=== PATIENT | female | born 1965 | race Caucasian/White ===

== ENCOUNTER 2017-02-16 17:16 | Emergency (ER) | payer OTHER ==
[~2017-02-16] VITALS: Ht 175.3 cm; Wt 62.8 kg
[~2017-02-16 17:16] MED LIST: ALPR-475 PO; AMIT25TA PO; CLOP75TA52 PO; DAPT500V6 IV; HYDR-3307 PO; RIVA20TA PO; ROSU10TA PO; VENL150C PO; [UNRECOGNIZED DRUG - CODE] PO
[2017-02-16] MEDS ORDERED: SODIUM CHLORIDE 0.9% 1,000 ML IV ONE (18:10)
[2017-02-16] MEDS ORDERED: KETOROLAC 30 MG/1 ML ONE (18:14)
[2017-02-16] MEDS ORDERED: ONDANSETRON 2MG/ML, 2ML ONE (18:14)
[2017-02-16] MEDS ORDERED: LORazepam 2 MG/ML, 1ML ONE (18:15)
[2017-02-16] MEDS ORDERED: KETOROLAC 30 MG/1 ML IVPush ONE (18:30)
[2017-02-16] MEDS ORDERED: LORazepam 2 MG/ML, 1ML IVP ONE (18:30)
[2017-02-16] MEDS ORDERED: ONDANSETRON 2MG/ML, 2ML IVP ONE (18:30)
[2017-02-16] MEDS ORDERED: SODIUM CHLORIDE FLUSH 10ML SYR IVF ONE (18:30)
[2017-02-16 19:12] LABS: ASPARTATE AMINO TRANSFERASE 31 U/L (15-37); BLOOD UREA NITROGEN 11 mg/dL (7-18)
[2017-02-16 19:14] LABS: HEMATOCRIT 38.1 % (34.6-47.8); HEMOGLOBIN 12.4 g/dL (11.7-16.4); WHITE BLOOD COUNT 6.2 x10^3/uL (3.4-10)
[2017-02-16 19:18] LABS: IS PT STATUS REG ER OR PRE ER? YES
[2017-02-16] MEDS ORDERED: OMNIPAQUE 350 MG/ML, 100ML BOTTLE ONE (20:23)
[2017-02-16 20:37] VITALS: BP 108/61
== END 2017-02-16 20:41 | disposition home or self-care (01) ==
LOC: ED 20:32
DX: R06.00 Dyspnea, unspecified (principal); F43.0 Acute stress reaction; F41.9 Anxiety disorder, unspecified; Z88.0 Allergy status to penicillin; Z88.1 Allergy status to other antibiotic agents
CPT/HCPCS: 36415; 71020; 71275; 80053; 84484; 85025; 85610; 93005; 96361; 96374; 96375; 99285; J2060; J2405; J7030; Q9967

== ENCOUNTER 2017-04-09 14:03 | Emergency (ER) | payer OTHER ==
[~2017-04-09] VITALS: Ht 175.3 cm; Wt 62.0 kg
[2017-04-09] MEDS ORDERED: GABA300C10 PO (14:59)
[2017-04-09] MEDS ORDERED: DEXT10TA7 PO (15:03)
[2017-04-09 16:10] LABS: HEMATOCRIT 39.3 % (34.6-47.8); HEMOGLOBIN 12.9 g/dL (11.7-16.4); WHITE BLOOD COUNT 5.2 x10^3/uL (3.4-10)
[2017-04-09 16:24] LABS: BLOOD UREA NITROGEN 9 mg/dL (7-18)
[2017-04-09 17:28] VITALS: BP 122/68
== END 2017-04-09 18:01 | disposition home or self-care (01) ==
LOC: ED 17:50
DX: R53.83 Other fatigue (principal); Z86.73 Personal history of transient ischemic attack (TIA), and cerebral infarction without residual deficits; M19.90 Unspecified osteoarthritis, unspecified site; Z88.0 Allergy status to penicillin; Z88.8 Allergy status to other drugs, medicaments and biological substances
CPT/HCPCS: 36415; 70450; 70551; 80048; 82040; 85025; 85610; 85730; 99285

== ENCOUNTER 2018-10-03 15:56 | Emergency (ER) | payer OTHER ==
[~2018-10-03] VITALS: Ht 175.3 cm; Wt 71.8 kg
[~2018-10-03 15:56] MED LIST changes: +DEXT10TA7 PO; +GABA300C10 PO; -ROSU10TA PO; +ROSU10TA2 PO
[2018-10-03] MEDS ORDERED: SODIUM CHLORIDE FLUSH 10ML SYR IVF ONE (16:30)
[2018-10-03 16:58] LABS: HCT (SEDRATE) 36.9 % (34.6-47.8)
[2018-10-03 17:00] LABS: BASOPHILS # (AUTO) 0.01 x10^3/uL (0-0.1); BASOPHILS % (AUTO) 0 % (0-1); EOSINOPHILS # (AUTO) 0.16 x10^3/uL (0-0.4); EOSINOPHILS % (AUTO) 4 % (1-7); LYMPHOCYTES # (AUTO) 1.27 x10^3/uL (1-3.4); LYMPHOCYTES % (AUTO) 31 % (22-44); MD NO; MEAN CORPUSCULAR HGB CONC 31.4 g/dL (32.4-35.8); MEAN CORPUSCULAR VOLUME 76.5 fL (80-100); MEAN PLATELET VOLUME 9.4 fL (7.4-10.4); MONOCYTES # (AUTO) 0.37 x10^3/uL (0.2-0.8); MONOCYTES % (AUTO) 9 % (2-9); NEUTROPHILS # (AUTO) 2.21 x10^3/uL (1.8-6.8); NEUTROPHILS % (AUTO) 55 % (42-75); PLATELET COUNT 251 x10^3/uL (130-400); RED BLOOD COUNT 4.81 x10^6/uL (3.82-5.3); RED CELL DISTRIBUTION WIDTH 15.5 % (9.6-15.2)
[2018-10-03 17:06] LABS: ALANINE AMINOTRANSFERASE 35 U/L (12-78); ALBUMIN 3.5 g/dL (3.4-5.0); ANION GAP 7 mmol/L (5-15); CALCIUM 8.6 mg/dL (8.5-10.1); CHLORIDE 111 mmol/L (98-107); CREATININE 0.84 mg/dL (0.55-1.02)
[2018-10-03] MEDS ORDERED: GADOBUTROL 7.5 MMOL/7.5 ML PFS ONE (17:15)
[2018-10-03 17:16] LABS: ALKALINE PHOSPHATASE 146 U/L (45-117); BILIRUBIN,TOTAL 0.2 mg/dL (0.2-1.0); TOTAL PROTEIN 7.1 g/dL (6.4-8.2)
--- NOTE | 2018-10-03 17:25 | NUR ---
LATE NOTE ENTRY FOR 1606: Pt presents to ED with friend at bedside. Pt c/o slurred speech starting "yesterday". 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 She had a major stroke 10 years ago. She takes Eloquis, but stopped it four days ago for fillers (botox). She started taking it again. She has been having terrible pain in her neck and arms as well. Her arms are weak and she just seems weaker." Pt resting on gurney connected to NIBP, continous pulse ox, and secured entrance monitor. Both bedrails up for safety measures. Call light within reach. Pt has occasional slurred speech, can speak in full sentences. Pt has mild weakness in bilateral upper extremities that began "yesterday". Pt denies cp, sob, n/v/d, trauma, dizziness, or lightheadedness.
--- NOTE | 2018-10-03 17:31 | NUR ---
Pt transported on [facility] to [facility].
[2018-10-03 17:47] LABS: INTERNATIONAL NORMALIZED RATIO 1.04 (0.93-1.1); PROTHROMBIN TIME 10.9 Seconds (9.6-11.5)
[2018-10-03 18:19] VITALS: BP 113/64
--- NOTE | 2018-10-03 18:49 | NUR ---
Pt report from Ro bolton. This rn to assume care of pt.
--- NOTE | 2018-10-03 18:59 | NUR ---
Provided bedside report to GRETCHEN Fierro. All questions answered. GRETCHEN Fierro to assume care of pt. NADN.
== END 2018-10-03 19:11 | disposition home or self-care (01) ==
LOC: ED 17:14
DX: R41.82 Altered mental status, unspecified (principal); R53.1 Weakness; R47.9 Unspecified speech disturbances; F41.1 Generalized anxiety disorder; F32.9 Major depressive disorder, single episode, unspecified; M19.90 Unspecified osteoarthritis, unspecified site; Z86.73 Personal history of transient ischemic attack (TIA), and cerebral infarction without residual deficits
CPT/HCPCS: 36415; 70553; 72156; 80053; 84443; 85025; 85610; 85651; 93005; 99284; A9585

== ENCOUNTER 2018-10-20 17:54 | Emergency (ER) | payer OTHER ==
[~2018-10-20] VITALS: Ht 175.3 cm; Wt 70.5 kg
--- NOTE | 2018-10-20 18:40 | NUR ---
TEMP 99 T0 100. PT HAS RLQ PAIN, DISTENTION. PT HAS BEEN EXPERIENCING NUMBNESS UPPER EXTREMITIES IN THE MORNING FOR A FEW MONTHS
--- NOTE | 2018-10-20 19:02 | NUR ---
RECEIVED REPORT FROM GRETCHEN NGUYEN TO ASSUME CARE OF PT. PT. BEING EAVALUATED BY PROVIDER AT THIS TIME.
--- NOTE | 2018-10-20 19:20 | NUR ---
PT. IS ON CONTINUOUS PULSE OX AND B/P MONITORS. FAMILY AT BS FOR SUPPORT. PT. DENIES NEEDS. AWAITING PROVIDER ORDERS.
[2018-10-20] MEDS ORDERED: METHYLNALTREXONE 12 MG/0.6 ML SQ ONE ×2 (19:30→22:00)
[2018-10-20] MEDS ORDERED: DIPHENHYDRAMINE 50 MG/ML, 1ML IVPush ONE (19:30)
[2018-10-20] MEDS ORDERED: METOCLOPRAMIDE 5 MG/ML, 2ML IVPush ONE (19:30)
[2018-10-20] MEDS ORDERED: MORPHINE SULFATE 4 MG/ML, 1ML IVPush PRN (19:30)
[2018-10-20] MEDS ORDERED: SODIUM CHLORIDE FLUSH 10ML SYR IVF ONE (19:30)
--- NOTE | 2018-10-20 19:34 | NUR ---
DR. SALGADO AT TO EVAL PT. AND DISCUSS POC WITH PT. AND FAMILY.
[2018-10-20] MEDS ORDERED: DIPHENHYDRAMINE 50 MG/ML, 1ML ONE (19:59)
[2018-10-20] MEDS ORDERED: METOCLOPRAMIDE 5 MG/ML, 2ML ONE (19:59)
[2018-10-20 20:00] LABS: BASOPHILS # (AUTO) 0.02 x10^3/uL (0-0.1); BASOPHILS % (AUTO) 1 % (0-1); EOSINOPHILS # (AUTO) 0.17 x10^3/uL (0-0.4); EOSINOPHILS % (AUTO) 4 % (1-7); LYMPHOCYTES # (AUTO) 1.09 x10^3/uL (1-3.4); LYMPHOCYTES % (AUTO) 26 % (22-44); MD NO; MEAN CORPUSCULAR HEMOGLOBIN 24.7 pg (27.0-34.8); MEAN CORPUSCULAR HGB CONC 32.6 g/dL (32.4-35.8); MEAN CORPUSCULAR VOLUME 75.7 fL (80-100); MONOCYTES # (AUTO) 0.38 x10^3/uL (0.2-0.8); MONOCYTES % (AUTO) 9 % (2-9); NEUTROPHILS # (AUTO) 2.48 x10^3/uL (1.8-6.8); NEUTROPHILS % (AUTO) 60 % (42-75); PLATELET COUNT 240 x10^3/uL (130-400); RED BLOOD COUNT 5.07 x10^6/uL (3.82-5.3); RED CELL DISTRIBUTION WIDTH 15.8 % (9.6-15.2)
[2018-10-20] MEDS ORDERED: MORPHINE SULFATE 4 MG/ML, 1ML ONE (20:00)
[2018-10-20 20:10] LABS: INTERNATIONAL NORMALIZED RATIO 0.99 (0.93-1.1); PROTHROMBIN TIME 10.4 Seconds (9.6-11.5)
[2018-10-20 20:12] LABS: ALANINE AMINOTRANSFERASE 48 U/L (12-78); ALBUMIN 3.5 g/dL (3.4-5.0); ANION GAP 8 mmol/L (5-15); CALCIUM 9.3 mg/dL (8.5-10.1); CHLORIDE 111 mmol/L (98-107); CREATININE 0.77 mg/dL (0.55-1.02)
--- NOTE | 2018-10-20 20:12 | NUR ---
PT. MEDICATED PER MAR. FAMILY REMAINS AT BS FOR SUPPORT. AWAITING CT. AWARE OF NEED FOR UA.
[2018-10-20 20:15] LABS: ALKALINE PHOSPHATASE 174 U/L (45-117); BILIRUBIN,TOTAL 0.3 mg/dL (0.2-1.0); TOTAL PROTEIN 7.3 g/dL (6.4-8.2)
[2018-10-20] MEDS ORDERED: OMNIPAQUE 350 MG/ML, 100ML BOTTLE ONE (20:40)
[2018-10-20 21:51] LABS: MICROSCOPIC AUTO
[2018-10-20 21:52] LABS: CULTURE INDICATED? YES
--- NOTE | 2018-10-20 21:54 | NUR ---
TASK RN: ALL RESULTS BACK AT THIS TIME, CHART UP FOR RECHECK
[2018-10-20] MEDS ORDERED: METHYLNALTREXONE 12 MG/0.6 ML SYR SQ ONE ×2 (22:14→22:30)
--- NOTE | 2018-10-20 22:20 | NUR ---
BREAK RN: PT IN [facility], GIVEN SQ RELISTOR PER MD ORDER, SEE EMAR. PT TOLERATED WELL. FAMILY AT BEDSIDE AND VERY ATTENTIVE.
--- NOTE | 2018-10-20 22:23 | NUR ---
BREAK RN: MD AT BEDSIDE FOR RECHECK AND UPDATE TO POC.
--- NOTE | 2018-10-20 22:24 | NUR ---
REPORT BACK FROM RN. ARON BANEGAS AT FOR RECHECK NOW.
[2018-10-20 22:58] VITALS: BP 115/70
== END 2018-10-20 22:59 | disposition home or self-care (01) ==
LOC: ED 22:23
DX: K59.00 Constipation, unspecified (principal)
CPT/HCPCS: 36415; 74177; 80053; 81001; 83690; 85025; 85610; 85730; 87086; 96372; 96374; 96375; 99284; J1200; J2270; J2765; Q9967

== ENCOUNTER 2019-02-11 17:58 | Emergency (ER) | payer OTHER ==
[~2019-02-11] VITALS: Ht 175.3 cm; Wt 72.8 kg
[~2019-02-11 17:58] MED LIST changes: -ALPR-475 PO; +ALPR0.5T7 PO; -HYDR-3307 PO; +HYDR-36 PO
[2019-02-11 18:04] VITALS: BP 150/77
--- NOTE | 2019-02-11 19:01 | NUR ---
LEFT EAR PAIN AND URINARY FREQUENCY
--- NOTE | 2019-02-11 19:03 | NUR ---
REPORT TO MIRTA GODINEZ
--- NOTE | 2019-02-11 19:20 | NUR ---
Received report, already went to bedside. Patient listing multiple medical problems, but these medical problems patient reports have been going on for months if not years. Patient seems aware of the non emergent nature of these problems.
[2019-02-11 19:58] LABS: BASOPHILS # (AUTO) 0.02 x10^3/uL (0-0.1); BASOPHILS % (AUTO) 1 % (0-1); EOSINOPHILS # (AUTO) 0.27 x10^3/uL (0-0.4); EOSINOPHILS % (AUTO) 6 % (1-7); LYMPHOCYTES # (AUTO) 1.66 x10^3/uL (1-3.4); LYMPHOCYTES % (AUTO) 35 % (22-44); MD NO; MEAN CORPUSCULAR HEMOGLOBIN 26.3 pg (27.0-34.8); MEAN CORPUSCULAR HGB CONC 32.5 g/dL (32.4-35.8); MEAN PLATELET VOLUME 8.3 fL (7.4-10.4); MONOCYTES # (AUTO) 0.42 x10^3/uL (0.2-0.8); MONOCYTES % (AUTO) 9 % (2-9); NEUTROPHILS # (AUTO) 2.42 x10^3/uL (1.8-6.8); NEUTROPHILS % (AUTO) 51 % (42-75); PLATELET COUNT 304 x10^3/uL (130-400); RED BLOOD COUNT 5.32 x10^6/uL (3.82-5.3); RED CELL DISTRIBUTION WIDTH 17.9 % (9.6-15.2)
[2019-02-11 20:06] LABS: ALANINE AMINOTRANSFERASE 58 U/L (12-78); ALBUMIN 3.8 g/dL (3.4-5.0); ANION GAP 6 mmol/L (5-15); C-REACTIVE PROTEIN, QUANT 0.07 mg/dL (0.02-0.49); CALCIUM 8.8 mg/dL (8.5-10.1); CHLORIDE 104 mmol/L (98-107)
[2019-02-11 20:08] LABS: ALKALINE PHOSPHATASE 119 U/L (45-117); BILIRUBIN,TOTAL 0.3 mg/dL (0.2-1.0); TOTAL PROTEIN 7.5 g/dL (6.4-8.2)
[2019-02-11 21:08] LABS: MICROSCOPIC AUTO
[2019-02-11 21:09] LABS: CULTURE INDICATED? YES
[2019-02-11] MEDS ORDERED: CIPROFLOXACIN DEXAMETHASONE EAR SUSP 7.5ML LEFT EAR ONE (21:30)
== END 2019-02-11 21:48 | disposition home or self-care (01) ==
LOC: ED 21:00
DX: H92.02 Otalgia, left ear (principal); N30.00 Acute cystitis without hematuria; F41.1 Generalized anxiety disorder; M19.90 Unspecified osteoarthritis, unspecified site; Z86.73 Personal history of transient ischemic attack (TIA), and cerebral infarction without residual deficits
CPT/HCPCS: 36415; 80053; 81001; 81374; 85025; 85651; 86140; 87086; 99283

== ENCOUNTER → 2020-08-03 | Outpatient (CLI) | payer OTHER ==
[~2020-08-03] MED LIST changes: +HYDR-3248 PO; -HYDR-36 PO
== END | disposition home or self-care (01) ==
LOC: RAD 15:12
PROVIDERS: ATTEND Nurse Practitioner Family
DX: R22.1 Localized swelling, mass and lump, neck (principal)
CPT/HCPCS: 76536

== ENCOUNTER 2020-08-05 13:07 | Outpatient (CLI) | payer OTHER ==
[2020-08-05 13:50] LABS: CREATININE 0.98 mg/dL (0.55-1.02)
[2020-08-05] MEDS ORDERED: OMNIPAQUE 350 MG/ML, 100ML BOTTLE ONE (15:29)
== END 2020-08-05 23:59 | disposition home or self-care (01) ==
LOC: RAD 13:07
PROVIDERS: ATTEND Ophthalmology
DX: R22.1 Localized swelling, mass and lump, neck (principal)
CPT/HCPCS: 36415; 70491; 82565; Q9967

== ENCOUNTER 2020-08-23 18:30 | Emergency (ER) | payer OTHER ==
[~2020-08-23] VITALS: Ht 175.3 cm; Wt 69.9 kg
[2020-08-23 20:22] LABS: BASOPHILS % (AUTO) 1 % (0-1); EOSINOPHILS % (AUTO) 4 % (1-7); LYMPHOCYTES % (AUTO) 29 % (22-44); MEAN CORPUSCULAR HEMOGLOBIN 25.3 pg (27.0-34.8); MEAN CORPUSCULAR HGB CONC 32.4 g/dL (32.4-35.8); MEAN PLATELET VOLUME 8.1 fL (7.4-10.4); MONOCYTES % (AUTO) 9 % (2-9); NEUTROPHILS % (AUTO) 57 % (42-75); PLATELET COUNT 265 x10^3/uL (130-400); RED BLOOD COUNT 5.05 x10^6/uL (3.82-5.3); RED CELL DISTRIBUTION WIDTH 15.8 % (9.6-15.2)
[2020-08-23 20:23] LABS: MD NO
--- NOTE | 2020-08-23 20:28 | NUR ---
PT RESTING IN [facility]. IV STARTED. BLANKETS PROVIDED. MRI SHEET FAXED
[2020-08-23 20:35] LABS: ALANINE AMINOTRANSFERASE 35 U/L (12-78); ALBUMIN 3.7 g/dL (3.4-5.0); ANION GAP 6 mmol/L (5-15); CHLORIDE 107 mmol/L (98-107)
[2020-08-23 20:37] LABS: ALKALINE PHOSPHATASE 164 U/L (45-117); BILIRUBIN,TOTAL 0.2 mg/dL (0.2-1.0); CREATININE 0.96 mg/dL (0.55-1.02); TOTAL PROTEIN 7.3 g/dL (6.4-8.2)
--- NOTE | 2020-08-23 21:08 | NUR ---
PT IN MRI
[2020-08-23] MEDS ORDERED: OMNIPAQUE 350 MG/ML, 150 ML BOTTLE ONE (21:29)
--- NOTE | 2020-08-23 22:22 | NUR ---
1ST CONTACT C PT. RESTING ON CART IN NAD. DENIES ANY NEEDS. CALL LIGHT INREACH. WILL CTM.
[2020-08-23 23:33] VITALS: BP 121/59
--- NOTE | 2020-08-23 23:33 | NUR ---
COVID SWAB OBTAINED & SENT
== END 2020-08-23 23:35 | disposition home or self-care (01) ==
LOC: ED 20:53
DX: L04.0 Acute lymphadenitis of face, head and neck (principal); Z20.822 Contact with and (suspected) exposure to COVID-19; M54.2 Cervicalgia; R51.9 Headache, unspecified; R07.89 Other chest pain; R11.10 Vomiting, unspecified; R06.02 Shortness of breath; M19.90 Unspecified osteoarthritis, unspecified site; Z86.73 Personal history of transient ischemic attack (TIA), and cerebral infarction without residual deficits
CPT/HCPCS: 36415; 70496; 70498; 70551; 71275; 80053; 83690; 85025; 99285; Q9967; U0003

== ENCOUNTER 2021-01-17 17:35 | Emergency (ER) | payer SELFPAY ==
--- NOTE | 2021-01-17 18:06 | NUR ---
MANA[employer] RELATIONS: NOT IN LOBBY
--- NOTE | 2021-01-17 18:33 | NUR ---
NOT IN LOBBY
--- NOTE | 2021-01-17 19:12 | NUR ---
PT NOT IN LOBBY. 3RD CALL. PRESUMED LEFT WITHOUT BEING SEEN.
--- NOTE | 2021-01-17 19:34 | NUR ---
pt signed out ama with reg desk
== END 2021-01-17 20:29 | disposition left against medical advice (07) ==
LOC: ED 17:40
DX: K59.00 Constipation, unspecified (principal); Z53.21 Procedure and treatment not carried out due to patient leaving prior to being seen by health care provider